=== PATIENT | male | born 1955 | race Caucasian/White ===

== ENCOUNTER → 2024-09-02 14:17 | Outpatient (REF) | payer MEDICARE, OTHER, SELFPAY | LOC: HWRAD 14:17 | PROVIDERS: ATTENDING PHYSICIAN Internal Medicine; FAMILY PHYSICIAN Nurse Practitioner Adult Health; REFERRING PHYSICIAN Radiology Radiation Oncology | DX: N18.31 Chronic kidney disease, stage 3a (principal); I10 Essential (primary) hypertension; E78.00 Pure hypercholesterolemia, unspecified | CPT/HCPCS: 76775 ==

== ENCOUNTER → 2025-02-08 12:19 | Outpatient (REF) | payer MEDICARE, OTHER, SELFPAY ==
[2025-02-08 14:09] LABS: PSA, Total - Diagnostic 0.18 ng/ml (0.0-4.0)
== END ==
LOC: REG 12:19
PROVIDERS: ATTENDING PHYSICIAN Family Medicine Geriatric Medicine; FAMILY PHYSICIAN Nurse Practitioner Adult Health
DX: C61 Malignant neoplasm of prostate (principal); Z79.818 Long term (current) use of other agents affecting estrogen receptors and estrogen levels; Z12.5 Encounter for screening for malignant neoplasm of prostate
CPT/HCPCS: 36415; 84153; 84270; 84402; 84403

== ENCOUNTER → 2025-03-31 06:42 | Outpatient (REF) | payer MEDICARE, OTHER, SELFPAY ==
[2025-03-31 07:53] LABS: Hematocrit 43.4 % (39.0-52.0); Hemoglobin 14.3 g/dL (13.0-18.0); Mean Corp Hgb Conc. 32.9 g/dL (33.0-37.0); Mean Corpuscular Volume 89.5 fL (80.0-94.0); Nucleated Red Blood Cells % 0 % (-); Platelet Count 248 10^3/uL (130-400); Red Cell Dist. Width 13.7 % (11.5-14.5)
[2025-03-31 08:00] LABS: Urine Character Clear (Clear)
[2025-03-31 08:32] LABS: ALT (SGPT) 15 U/L (0-50); AST (SGOT) 16 U/L (17-59); Albumin 4.4 g/dl (3.5-5.0); Alkaline Phosphatase 43 U/L (38-126); HDL Cholesterol 42 mg/dl; LDL Cholesterol, Calculated 86 mg/dl; Total Protein 7.1 g/dl (6.3-8.2); Very Low Density Lipoprotein 32 mg/dl (0-30)
[2025-03-31 08:43] LABS: LDL Cholesterol, Direct 85 mg/dl
[2025-03-31 08:54] LABS: Urine Squamous Cell 0-2 /LPF (Few)
[2025-03-31 08:56] LABS: Urine Red Blood Cell 0-2 /HPF (0-2); Urine White Cell 0-2 /HPF (0-5)
[2025-03-31 10:37] LABS: Glycohemoglobin (HgbA1c) 6.1 % (4.0-5.6)
== END ==
LOC: REG 06:42
PROVIDERS: ATTENDING PHYSICIAN Nurse Practitioner Adult Health
DX: I10 Essential (primary) hypertension (principal); E11.9 Type 2 diabetes mellitus without complications; E78.00 Pure hypercholesterolemia, unspecified; J45.40 Moderate persistent asthma, uncomplicated; G47.33 Obstructive sleep apnea (adult) (pediatric); C61 Malignant neoplasm of prostate
CPT/HCPCS: 36415; 80061; 80076; 81003; 81015; 83036; 83721; 84443; 85025

== ENCOUNTER → 2025-04-26 06:39 | Outpatient (REF) | payer MEDICARE, OTHER, SELFPAY ==
[2025-04-26 07:48] LABS: Blood Urea Nitrogen 15 mg/dl (9-20); Calcium 9.7 mg/dl (8.4-10.2); Carbon Dioxide 28 mmol/L (22-30); Chloride 102 mmol/L (98-107); Glucose 126 mg/dl (70-99); Potassium 4.5 mmol/L (3.5-5.1); Sodium 138 mmol/L (135-145); eGFR 58.73
[2025-04-26 07:54] LABS: Microalb - Urine Creatinine 308.300 mg/dl
[2025-04-26 07:59] LABS: Microalbumin, Random Urine 2.1 mg/dl (0.6-1.7)
== END ==
LOC: REG 06:39
PROVIDERS: ATTENDING PHYSICIAN Nurse Practitioner Adult Health
DX: N18.31 Chronic kidney disease, stage 3a (principal)
CPT/HCPCS: 36415; 80048; 82043; 82570